=== PATIENT | female | born 1995 | race Caucasian/White ===

== ENCOUNTER 2017-01-04 11:56 | Day surgery (SDC) | payer BC ==
[~2017-01-04] VITALS: Ht 170.2 cm; Wt 60.8 kg
--- NOTE | 2017-01-04 11:35 | Diagnostic Imaging Report ---
PROCEDURE: CT abdomen and pelvis with contrast. TECHNIQUE: Multiple contiguous axial images were obtained through the abdomen and pelvis after administration of intravenous contrast. INDICATION: Right lower quadrant pain. COMPARISON: There are no prior studies available for comparison. FINDINGS: The appendix was difficult to visualize due to the patient's paucity of fat; however, the appendix does appear to be slightly thickened measuring roughly 9 mm (normal 8 mm or less). There is also mild distortion of the periappendiceal fat and the possibility of early appendicitis should certainly be considered. The sections through the low pelvis also show that there are bilateral perhaps slightly complicated ovarian cysts. The suspected cyst on the right measures 2.0 x 3.1 cm while the left ovarian cyst is estimated to be 1.6 x 3.3 cm. If further evaluation of these findings is desired, then ultrasound would be recommended. The uterus is not enlarged. The urinary bladder is grossly unremarkable. The liver, spleen, gallbladder, kidneys, pancreas, adrenals, aorta, and inferior vena cava are unremarkable for an acute abnormality. There is suggestion of mild compression of the left renal vein by the superior mesenteric artery. This finding is unlikely to be related to the so-called Nutcracker Syndrome. The stomach is not well distended and consequently difficult to assess. The lung bases are clear. The bone windows show no evidence for a fracture or for a destructive lesion. Incidental note is made of a small metallic umbilical prong. IMPRESSION: 1. The appendix is slightly thickened and there is mild distortion of the periappendiceal fat. These findings do suggest early appendicitis. 2. There are bilateral perhaps slightly complicated ovarian cysts. If further study is desired, then an ultrasound would be recommended. 3. There is no acute abnormality of the abdomen or pelvis noted otherwise. 4. These results were discussed with Dr. Klaudia Lechuga and Dr. Thomas Griggs at the time of this dictation. CRITICAL FINDING Dictated by: Dictated on workstation # [id number]
[~2017-01-04 11:56] MED LIST: CATHETER FLUSH 10 ML SYR IV PRN; IOHEXOL 350 MG/ML 100 ML (OMNIPAQUE 350) VIAL IV ONE; NS 100 ML (IVPB) BAG IV ONE
[2017-01-04] MEDS ORDERED: LACTATED RINGERS 1,000 ML IV SCH (12:00)
[2017-01-04] MEDS ORDERED: ceFAZolin 2 GM/50 ML NS 50 ML IV ONE ×2 (12:00→12:01)
--- NOTE | 2017-01-04 12:10 | History & Physical-Surgical ---
History of Present Illness History of Present Illness Reason for visit/HPI Pt is a 21 yo female who states she had pain in her abdomen started 2 days ago, got "really bad" but since has gone away a little. Located in the RLQ sometimes radiating down into pelvis. She has never had pain like this before. She has had some loss of appetite. Rated the pain at its worst as 7 out of 10. Not moving helps, but pain flares with any movement. 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 student and went to health clinic, found to have a mildly elevated WBC - [address] of abdomen. Radiologist read the CT as mildy thickened appendix, bilateral ovarian cysts; he believed this was early appendicitis. Date of Admission I consulted on this patient on 01/04/17 12:04 Attending Physician Thomas Sauceda DO Admitting Physician Flor,Local Physician Consult Allergies and Home Medications Allergies Coded Allergies: No Allergy Information Available (Unverified , 01/04/17) Past Ecsvmar-Pisszd-Pmkuty Hx Patient Social History Alcohol Use: Occasionally Uses Recreational Drug Use: No Smoking Status: Never a Smoker 2nd Hand Smoke Exposure: No Recent Foreign Travel: No Contact w/Someone Who Travel: No Recent Infectious Disease Expo: No Recent Hopitalizations: No Immunizations Up To Date Tetanus Booster (TDap): More than 5yrs Seasonal Allergies Seasonal Allergies: No Surgeries HX Surgeries: Yes (she thinks "red spot" removed from neck at 8 yo, ?? hemangioma) Respiratory Hx Respiratory Disorders: No Cardiovascular Hx Cardiac Disorders: No Neurological Hx Neurological Disorders: No Reproductive System : No Genitourinary Hx Genitourinary Disorders: No Gastrointestinal Hx Gastrointestinal Disorders: No Musculoskeletal Hx Musculoskeletal Disorders: No Endocrine Hx Endocrine Disorders: No HEENT HX ENT Disorders: No Cancer Hx Cancer: No Psychosocial Hx Psychiatric Problems: No Integumentary HX Skin/Integumentary Disorder: No Blood Transfusions Hx Blood Disorders: No Adverse Reaction to a Blood Tr: No Family Medical History Significant Family History: No Pertinent Family Hx (pt denies any DM or HTN in either parent) Constitutional: No chills, No dizziness, No fever, malaise EENTM: No blurred vision, No mouth swelling, No nose congestion, No throat swelling, No vision loss Respiratory: No cough, No dyspnea on exertion Cardiovascular: No chest pain, No palpitations Gastrointestinal: RLQNo constipation, No diarrhea, No hematemesis, No nausea, No vomiting Genitourinary: No decreased output, No discharge, No dysuria, No frequency, No hematuria : No Musculoskeletal: No back pain, No joint pain, No muscle pain, No muscle stiffness Skin: No change in color, No change in hair/nails Psychiatric/Neurological: Denies Anxiety, Denies Depressed, Denies Headache, Denies Seizure, Denies Tingling, Denies Weakness Other pt denies any chronic illness, no swollen lymph nodes. denies heat or cold intolerance Physical Exam Vital Signs Capillary Refill : General Appearance: WD/WN Mild Distress (secondary to pain) Eyes: Bilateral Eye EOMI, Bilateral Eye PERRL HEENT: Pharynx NormalNo Pale Conjunctivae (L), No Pale Conjunctivae (R) Neck: Full Range of Motion Non Tender SuppleNo Thyromegaly Respiratory: Lungs Clear Normal Breath Sounds No Accessory Muscle Use No Respiratory Distress Cardiovascular: Regular Rate, Rhythm No Edema No Murmur Gastrointestinal: No Organomegaly Soft Guarding (voluntary with deep palpation ) Tenderness (RLQ) Rectal: Deferred Back: No CVA Tenderness No Vertebral Tenderness Extremity: Normal Capillary Refill Normal Range of Motion No Calf Tenderness Neurologic/Psychiatric: Alert Oriented x3 No Motor/Sensory Deficits Normal 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 Discussed the risks and complications with pt including but not limited to pain , bleeding, infection, scar, damage to bowel and need for further procedure. It is possible this may be a normal appendix also. All questions answered to her satisfaction. She does have the option of no surgery ; however, with elevated WBC, CT reading and RLQ pain surgery is probably best option. She wants to go through with surgery. THOMAS SAUCEDA DO Jan 04, 2017 12:10
[2017-01-04] MEDS ORDERED: LACTATED RINGERS 1,000 ML IV PRN (12:19)
[2017-01-04] MEDS ORDERED: fentaNYL INJECTION 100 MCG/2 ML AMP ONE (12:22)
[2017-01-04] MEDS ORDERED: ROCURONIUM 50 MG/5 ML (ZEMURON) VIAL IV ONE (12:23)
[2017-01-04] MEDS ORDERED: proPOfol 200 MG/20 ML (DIPRIVAN) VIAL IV ONE (12:23)
[2017-01-04] MEDS ORDERED: ONDANSETRON 4 MG/2 ML (SDV) Z0FRAN ONE (12:23)
[2017-01-04] MEDS ORDERED: LIDOCAINE PF 2% 10 ML (XYLOCAINE) AMP ONE (12:23)
[2017-01-04] MEDS ORDERED: LIDOCAINE JELLY 2% (XYLOCAINE) 5 ML TUBE ONE (12:23)
[2017-01-04] MEDS ORDERED: LIDOCAINE/EPI 1%-1:100,000 (XYLOCAINE) 20ML ONE (12:23)
[2017-01-04] MEDS ORDERED: MIDAZOLAM 2 MG/2 ML (VERSED) VIAL ONE (12:24)
[2017-01-04 12:30] VITALS: BP 128/83
[2017-01-04] MEDS ORDERED: FAMOTIDINE 20MG/2ML IV (PEPCID) IV ONE (12:30)
[2017-01-04] MEDS ORDERED: AMPH20CA5 PO (12:44)
[2017-01-04] MEDS ORDERED: BIRTH CONTROL PO (12:44)
[2017-01-04] MEDS ORDERED: LACTATED RINGERS 1,000 ML IV ONE (13:33)
[2017-01-04] MEDS ORDERED: SEVOFLURANE (ULTANE) 15 ML INHAL SOLN ONE ×2 (13:33→14:08)
[2017-01-04] MEDS ORDERED: KETOROLAC 30 MG/ML VIAL ONE (13:34)
[2017-01-04] MEDS ORDERED: SUCCINYLCHOLINE INJ 100 MG/5 ML SYR ONE (13:34)
--- NOTE | 2017-01-04 13:46 | Progress Note-Post Operative ---
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
[2017-01-04] MEDS ORDERED: HYDR-3812 PO (13:47)
--- NOTE | 2017-01-04 13:49 | Discharge Inst-Surgical ---
Discharge Inst-Surgical Depart Medication/Instructions New, Converted or Re-Newed RX: RX Given to Pt/Family Patient Instructions Follow up Appt: Make appointment for 1 week. [phone] Instructions: No lifting greater than 10 pounds. No strenuous activity. May shower in 24 hours, no tub bath or soaking. Use incentive spirometer at home as directed. No Smoking Skin/Wound Care: May remove bandages in am. You have Dermabond (glue) over incisions, that will start flaking off in 7-10 days. Symptoms to Report: Appetite Changes, Extremity Discoloration, Numbness/Tingling, Swelling Increased , Bleeding Excessive, Eyesight Changes, Pain Increased, Urine Color Change, Constipation(Persistent), Fever over 101 degree F, Pain/Pressure in chest, Urinating Difficulty, Cough Up/Vomit Blood, Heart Beat Irreg/Pounding, Pain/ Pressure in jaw, Vaginal Bleeding Increase, Cramps in feet or legs, Lightheadedness, Pain/Pressure in shoulder, Diarrhea(Persistent), Memory Changes Suddenly, Questions/Concerns, Weight gain consecutive days, Dizziness/ Fainting, Nausea/Vomiting, Shortness of Breath, Weight gain over 2 pounds If questions or concerns contact your physician Or seek help at emergency department. Activity Activity as Tolerated: Yes Activity Instructions: Avoid Pulling & Pushing, Avoid Stress to Incision Driving Instructions: No Driving/Refer to Dr. Ray Driving When on Pain Meds: Yes Diet Discharge Diet: No Restrictions If Any Problems/Questions/Issu: Contact Your Physician, Go to Emergency Room Skin/Wound Care Infection Signs and Symptoms: Increased Redness, Foul Odor of Wound, Increased Drainage, Increased Swelling, Temperature Above 101 F Bathing Instructions: Shower Operative Area Clean and Dry: Keep Incision Clean/Dry Stitches/[place]/Dermabond Dis: Dermabond Ice Pack: Ice On and Off Site ELANA SOLITARIO DO Jan 04, 2017 13:48
[2017-01-04] MEDS ORDERED: HYDROcodone/APAP 5 MG/325 MG (LORTAB) TAB PO PRN (14:00)
[2017-01-04] MEDS ORDERED: GLYCOPYRROLATE 0.2 MG/ML (ROBINUL) 2 ML VIAL ONE (14:08)
[2017-01-04] MEDS ORDERED: NEOSTIGMINE (BLOXIVERZ ) 1 MG/1ML 10 ML VIAL ONE (14:08)
[2017-01-04] MEDS ORDERED: morphine INJ 10 MG/ML 1ML (SYR OR VIAL) ONE (14:10)
[2017-01-04] MEDS ORDERED: ONDANSETRON 4 MG/2 ML (SDV) Z0FRAN IV ONE (14:15)
[2017-01-04] MEDS ORDERED: fentaNYL INJECTION 100 MCG/2 ML AMP IV PRN (14:15)
[2017-01-04] MEDS: morphine INJ 10 MG/ML 1ML (SYR OR VIAL) IV PRN ×2 (14:24→14:34)
[2017-01-04 15:00] VITALS: BP 124/69
[2017-01-04 15:31] VITALS: BP 120/63
[2017-01-04 15:50] VITALS: BP 110/70
[2017-01-04 16:00] VITALS: BP 110/70
--- NOTE | 2017-01-06 08:53 | OPERATIVE REPORT ---
PROCEDURE PHYSICIAN: ELANA SAUCEDA DATE OF PROCEDURE: 01/04/2017 PREOPERATIVE DIAGNOSIS: Acute appendicitis. POSTOPERATIVE DIAGNOSIS: Acute appendicitis. PROCEDURE: Laparoscopic appendectomy. SURGEON: Dr. Sauceda VICE PRESIDENT NETWORK DEVELOPMENT: Alex White, medical student level 3. ANESTHESIA: General endotracheal tube. SPECIMEN: Appendix. BLOOD LOSS: Scant. FLUIDS: Minimal. POSTOPERATIVE: Stable. INDICATIONS FOR THE PROCEDURE: The patient is a 21-year-old female who had some right lower quadrant pain and it has been going on for 2 days. She finally went to the student clinic. White count was elevated. She was sent for CT which showed early appendicitis. FINDINGS: The patient had erythematous appendix, mildly dilated. This looked like an acute appendicitis. She also had a small right inguinal hernia indirect. PROCEDURE NOTE: After informed consent was obtained patient brought to the operating room, placed on table in supine position. She was sterilely prepped and draped in the normal fashion. Local lidocaine used to infiltrate the skin just inside and under the umbilicus. Then I made an incision with a number 11 blade, carried down through skin into subcutaneous tissue, deepened down the subcutaneous tissue Bovie electrocautery down to the fascia. The fascia was then incised with Bovie electrocautery then bluntly entered the abdomen, swept finger around. Placed 11 mm trocar port held in place the balloon. Created pneumoperitoneum and placed 2 more ports in the normal fashion using local lidocaine 11 blade for stab incision and the Versa step system all done under direct visualization, one suprapubically and one in the left lower quadrant just medial to the ASIS. The patient was placed slightly Trendelenburg, able to then start pulling the cecum up out of the way and then able to visualize the appendix. Also noted right indirect inguinal hernia, a picture was taken. Looked in the left, there was no hernia. Ovaries were looked at. They looked good. Able to grasp the appendix at the base and then started coming across the mesoappendix with a LigaSure clamping, coagulating and transecting in this fashion, freeing the appendix up until it was just attached to the cecum, coming across the appendiceal artery with a LigaSure and clamping and coagulating it. I then switched to a 5 mm camera and then brought the Endo ALDO in, placed across the base of the appendix, clamped and fired thereby transecting the appendix. Placed a bag in the abdomen, placed the appendix in the bag and then removed this through this through the infraumbilical incision. Placed the port back in the abdomen, copiously irrigated with normal saline, suctioned this out, looked around. Took a picture of the staple line looked good. No other obvious pathology and then the patient was placed supine. Removed all ports under direct visualization, allowing pneumoperitoneum to escape. Elected to close the pneumoperitoneum with 3-0 Vicryl [id number] suture and then close the fascia with two [id number] 0 Vicryl sutures. The incisions were cleaned and dried. Then closed the infraumbilical incision with 3 interrupted 4-0 undyed Monocryl subcuticular stitches and closed the two small 5 mm incision with a single interrupted 4-0 undyed Monocryl subcuticular stitch, each one. The area clean and dried and Dermabond placed. The patient then transferred to the recover room in stable condition. Sponge, instrument and needle were correct at the end of the case. Job ID: [id number] Dictated Date: 01/04/2017 17:29:01 Microbiology Laboratory Manager Date: 01/06/2017 08:33:55 / nelson CHANDLER
== END 2017-01-04 16:00 | disposition home or self-care (01) ==
LOC: SDC 11:56
PROVIDERS: ATTEND Surgery
DX: K35.80 Unspecified acute appendicitis (principal)
CPT/HCPCS: 74177; 84703; 87081; 88304; 94664